=== PATIENT | female | born 1955 | race Hispanic/Latino ===

== ENCOUNTER 2016-09-12 16:44 | Inpatient (IN) | payer OTHER, MEDICAID ==
[~2016-09-12] VITALS: Ht 147.3 cm; Wt 49.0 kg
[~2016-09-12 16:44] MED LIST: BENZ100C8 PO; CEPH500C PO; HYDR-656 PO; LISI-567 PO; MAGN400T23 PO; OMEP20CA11 PO; ONDA8TAB10 PO; PHEN100C11 PO
[2016-09-12 16:49] VITALS: BP 150/84; PULSE 110; RESP 18; O2SAT 96
--- NOTE | 2016-09-12 18:40 | DRSVH ---
PROCEDURE: X-RAY RIGHT RIBS, TWO VIEWS ([id number]) INDICATIONS: fall, pain and bruising TECHNIQUE: 3 views of the right ribs were acquired. COMPARISON: None. FINDINGS: Surgical changes and devices: Cholecystectomy clips. Bones and chest wall: Right 4th, 5th, 6th, 7th and 8th anterior rib fractures are identified. The th ere is also suspected lateral retractors at these levels as well as a lateral 9th and possibly rib fr acture. No definitive pneumothorax. Lungs and pleura: The visualized lung appears clear. No pleural effusions or pneumothorax are visib le. IMPRESSION: Multiple right-sided rib fractures as above. No visualized pneumothorax. Dictated by: Fransisca Rojas M.D. on 09/12/2016 at 18:36 Approved by: Fransisca Rojas M.D. on 09/12/2016 at 18:39
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
[2016-09-12] MEDS ORDERED: Ondansetron 2 mg/mL 2 mL Inj IVPUSH ONE (19:15)
[2016-09-12 20:11] LABS: APPEARANCE,URINE CLEAR (CLEAR,HAZY); COLOR,URINE YELLOW (YELLOW); OCCULT BLOOD,URINE TRACE (NEGATIVE); PH,URINE 5.5 (5.0-8.0); UROBILINOGEN,URINE NORMAL (NORMAL)
[2016-09-12 20:20] LABS: BASOPHILS % (AUTO) 0.3 % (0-3); EOSINOPHILS % (AUTO) 3.2 % (0-5); MONOCYTES % (AUTO) 14.1 % (4-12); Mean Corpuscular Volume 106.5 fL (81-100); NEUTROPHILS % (AUTO) 54.9 % (40-74); Platelet Count 178 bil/L (150-400)
[2016-09-12] MEDS: HYDROmorphone 0.5 mg/0.5 mL iSecure Syringe IVPUSH PRN ×2 (20:31→22:44)
[2016-09-12 20:43] LABS: INR 0.92 ratio
--- NOTE | 2016-09-12 20:54 | DRSVH ---
PROCEDURE: X-RAY RIGHT ELBOW COMPLETE, MINIMUM THREE VIEWS ([id number]) INDICATIONS: right elbow pain TECHNIQUE: 3 views of the elbow were acquired. COMPARISON: None. FINDINGS: Bones: No fractures or dislocations. No suspicious bony lesions. Soft tissues: No elbow joint effusion. No suspicious soft tissue calcifications. IMPRESSION: No visualized acute fracture or dislocation. However, if clinical concern and/or pain pe rsist, short interval imaging followup in 7-10 days is recommended, as occult injury cannot be defini tively excluded. Dictated by: Fransisca Rojas M.D. on 09/12/2016 at 20:52 Approved by: Fransisca Rojas M.D. on 09/12/2016 at 20:52
--- NOTE | 2016-09-12 21:56 | DRSVH ---
PROCEDURE: CT BRAIN WITHOUT CONTRAST ([id number]) INDICATIONS: fall, trauma TECHNIQUE: Noncontrast 4.5 mm thick angled axial sections acquired from the foramen magnum to the vertex, with c oronal reformats. COMPARISON: None. FINDINGS: Image quality: Excellent. CSF spaces: Basal cisterns are patent. No extra-axial fluid collections. The ventricles are symmet nury in size and shape. Brain: No intracranial bleeds or masses. There is cerebral volume loss for age, with resultant vent ricular and sulcal prominence. There are periventricular and deep white matter chronic small vessel ischemic changes. There is intracranial internal carotid artery atherosclerosis. Skull and face: Calvarium and visualized facial bones appear intact, without suspicious lesions. Ri ght frontal scalp hematoma. Sinuses: Visualized sinuses and mastoids are clear. IMPRESSION: 1. No acute intracranial process. 2. Moderate atrophy and chronic microvascular ischemic changes. 3. Right frontal scalp hematoma. Dictated by: Fransisca Rojas M.D. on 09/12/2016 at 21:53 Approved by: Fransisca Rojas M.D. on 09/12/2016 at 21:54
--- NOTE | 2016-09-12 21:58 | DRSVH ---
PROCEDURE: CT CERVICAL SPINE WITHOUT CONTRAST ([id number]) INDICATIONS: fall, trauma TECHNIQUE: Noncontrast 3 mm thick sections acquired from the skull base to the T4 level. Sagittal and coronal r eformats were then constructed. For radiation dose reduction, the following was used: automated exp osure control, adjustment of mA and/or kV according to patient size. COMPARISON: [facility], CT, CT CHEST ABD PELVIS W CON, 09/12/2016, 21:41. FINDINGS: Image quality: Excellent. Bones: No fractures or dislocations. Visualized superior ribs are intact. Soft tissues: Prevertebral soft tissues are normal in thickness. No paravertebral hematomas. No ap ical pneumothoraces. IMPRESSION: No visualized fracture Dictated by: Fransisca Rojas M.D. on 09/12/2016 at 21:54 Approved by: Fransisca Rojas M.D. on 09/12/2016 at 21:56
--- NOTE | 2016-09-12 22:09 | DRSVH ---
PROCEDURE: CT CHEST, ABDOMEN AND PELVIS WITH CONTRAST ([id number]) INDICATIONS: fall, trauma TECHNIQUE: After the administration of intravenous contrast, 5 mm thick sections acquired from the lung apices t o the symphysis. 5 mm thick coronal and sagittal reformats were acquired. Additional 7 mm thick cor onal maximum intensity projection (MIP) reformats acquired through the lungs. Optional 10-minute del ayed imaging may be performed from the kidneys to the bladder. For radiation dose reduction, the fol lowing was used: automated exposure control, adjustment of mA and/or kV according to patient size. COMPARISON: None. FINDINGS: Image quality: Excellent. CHEST: Lungs: No pulmonary contusions or lacerations. No acute airspace opacities. No pneumothorax or hem othorax. Central and peripheral airways appear patent and normal in caliber. Mediastinum: No mediastinal hematomas. Heart size is normal. No pericardial effusion. Thoracic ao rta and pulmonary arteries demonstrate normal size and enhancement. No mediastinal or hilar adenopat hy. Esophagus is normal in caliber. No hiatal hernia. Chest wall: Posterior lateral right fourth through 10th rib fractures are noted. Posterior lateral l eft seventh through 10th rib fractures are noted. No subcutaneous emphysema. No axillary or supracl avicular adenopathy. Thyroid gland is unremarkable. ABDOMEN: Solid organs: Liver and spleen are normal in size and enhancement, without lacerations. Gallbladder has been removed. There is prominence of the extrahepatic biliary system. Pancreas enhances normally , without transection. No adrenal hematomas. Both kidneys enhance normally, without hydronephrosis or lacerations. Peritoneum and bowel: No free fluid or air. Unenhanced bowel loops demonstrate normal wall thicknes s and caliber. Nodes and vessels: No retroperitoneal or mesenteric adenopathy. Aorta and inferior vena cava are no rmal in size and enhancement. Miscellaneous: No ventral hernias. PELVIS: Genitourinary: Bladder wall thickness is normal. The uterus demonstrates calcifications in the colo n diverticula are present without inflammatory change. Miscellaneous: No inguinal hernias or adenopathy. Bones: Pelvic ring and hip joints appear intact. No vertebral compression fractures. IMPRESSION: 1. Multiple bilateral rib fractures as above. No pneumothorax. 2. Mild prominence of the extra hepatic biliary system, suspected to be related to post cholecystecto my sequela. No priors are available for comparison recommend correlation with enzyme levels as approp riate. 3. Diverticulosis. Dictated by: Fransisca Rojas M.D. on 09/12/2016 at 21:56 Approved by: Fransisca Rojas M.D. on 09/12/2016 at 22:07
[2016-09-12] MEDS ORDERED: IBUP200C PO (23:20)
[2016-09-12] MEDS ORDERED: HYDR-656 PO (23:20)
[2016-09-12] MEDS ORDERED: ACET325T51 PO (23:20)
[2016-09-12 23:50] VITALS: BP 155/92; PULSE 118; RESP 18; O2SAT 98
[2016-09-13] VITALS (10 sets, daily range): BP systolic 94–137; BP diastolic 59–85; PULSE 74–104; RESP 16–20; O2SAT 95–100
[2016-09-13] MEDS ORDERED: HYDROmorphone PCA 0.2 mg/mL 30 mL Inj IV PRN
[2016-09-13] MEDS ORDERED: Dextrose 5% 500 ML IV SCH
[2016-09-13] MEDS ORDERED: Ondansetron 2 mg/mL 2 mL Inj IVPUSH PRN
[2016-09-13] MEDS ORDERED: Polyethylene Glycol (PEG) 17 Gm Powder PO PRN (00:05)
[2016-09-13] MEDS ORDERED: Alum-Mag Hydrox-Simeth 30 mL Suspension PO PRN ×2 (00:05)
[2016-09-13] MEDS: Ondansetron 2 mg/mL 2 mL Inj IVPUSH PRN ×2 (01:09→10:15)
[2016-09-13] MEDS: HYDROcodone-APAP 5-325 mg Tablet PO PRN ×4 (01:10→19:51)
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
[2016-09-13] MEDS ORDERED: 0.9% Sodium Chloride 500 ML IV ONE (02:15)
[2016-09-13] MEDS ORDERED: hydrOXYzine Pamoate 25 mg Capsule PO SCH (02:25)
--- NOTE | 2016-09-13 03:27 | NUR ---
ADMIT Patient presents to room reporting pain 9/10. Able to transfer to bed independently. Provided toradol, hydrocodone, and zofran for relief. Patient oriented to room and call light.
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
[2016-09-13] MEDS: Pantoprazole 20 mg ER24 Tablet PO SCH ×3 (06:11→18:16)
[2016-09-13] MEDS ORDERED: hydrOXYzine Pamoate 25 mg Capsule PO PRN (06:20)
[2016-09-13] MEDS: Phenytoin 100 mg ER Capsule PO SCH (07:55)
[2016-09-13 08:16] LABS: BASOPHILS % (AUTO) 0.3 % (0-3); EOSINOPHILS % (AUTO) 2.8 % (0-5); MONOCYTES % (AUTO) 15.5 % (4-12); Mean Corpuscular Hemoglobin 36.9 pg (27.0-35.0); Mean Corpuscular Volume 107.9 fL (81-100); NEUTROPHILS % (AUTO) 51.8 % (40-74); Platelet Count 164 bil/L (150-400)
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
[2016-09-14] MEDS: HYDROcodone-APAP 5-325 mg Tablet PO PRN ×2 (01:23→12:09)
[2016-09-14 04:15] LABS: Mean Corpuscular Hemoglobin 37.5 pg (27.0-35.0); Mean Corpuscular Volume 108.2 fL (81-100)
[2016-09-14 04:18] VITALS: BP 96/65; PULSE 74; RESP 18; O2SAT 98
[2016-09-14 07:50] VITALS: BP 121/69; PULSE 78; RESP 20; O2SAT 97
[2016-09-14] MEDS: Pantoprazole 20 mg ER24 Tablet PO SCH (07:57)
[2016-09-14] MEDS: Phenytoin 100 mg ER Capsule PO SCH (07:58)
--- NOTE | 2016-09-14 08:10 | NUR ---
Pain A/O, VSS. C/O pain radiating from right side and around to her back, medication given with good effect. Pt. reports feeling anxious with a combination of pain and worry regarding stresses at home. Pt. indicates unable to sleep, gave Visteral 25mg, and noted to rest with eyes closed intermittently. Pt. indicated that her relationship with her son (whom she lives with) is stressful, further stating she sleeps on laundry room floor and needs to find a place to live.
[2016-09-14] MEDS ORDERED: HYDR-4003 PO (11:31)
[2016-09-14] MEDS ORDERED: TRAM-14 PO (11:31)
[2016-09-14] MEDS ORDERED: Thiamine PO (11:31)
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
--- NOTE | 2016-09-14 13:00 | NUR ---
Discharge note Patient a/o x 3, c/o rib pain x 2, meds given with good effect. Patient up amb indep, steady gait. VSS. IV SL removed intact. Patient given discharge instructions, med rec. info on diagnosis and new meds and prescriptions. All questions answered. Patient called several resource facilities today and plans to go look when she feels better. Patient taken to bus stop with all belongings to discharge home.
--- NOTE | 2016-09-14 13:29 | NUR ---
Patient has hospital follow up appointment on September at 1530 with . Updated CASH CONTROLLER
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
== END 2016-09-14 13:00 | disposition home or self-care (01) | DRG 185 ==
LOC: SED 16:44 → PCC 22:59 → OBSVTOIN 22:59 → PCC 09-13 00:08
PROVIDERS: ADMIT Internal Medicine; ATTEND Internal Medicine
DX: S22.43XA Multiple fractures of ribs, bilateral, initial encounter for closed fracture (principal); D52.0 Dietary folate deficiency anemia; I10 Essential (primary) hypertension; R00.0 Tachycardia, unspecified; G40.909 Epilepsy, unspecified, not intractable, without status epilepticus; F41.9 Anxiety disorder, unspecified; F10.20 Alcohol dependence, uncomplicated; W01.0XXA Fall on same level from slipping, tripping and stumbling without subsequent striking against object, initial encounter; Y93.02 Activity, running; Y92.480 Sidewalk as the place of occurrence of the external cause